=== PATIENT | female | born 1965 | race Hispanic/Latino ===

== ENCOUNTER → 2024-11-22 | Day surgery (SDC) | payer OTHER ==
[~2024-11-22] MED LIST: LIDOCAINE HCL 2% LOCAL INJ 5 ML SDV VIAL INJ ONE; MIDAZOLAM HCL 2 MG/2 ML VIAL ONE; PROPOFOL IV EMULSION 10 MG/ML 20 ML VIAL ONE
[2024-11-22] MEDS: LACTATED RINGER'S 1,000 ML ONE (09:15)
[2024-11-22 11:06] VITALS: TEMP 97.6
[2024-11-22 11:30] VITALS: BP 102/62; PULSE 65; RESP 18; O2SAT 100
== END | disposition home or self-care (01) ==
LOC: OR 08:50
PROVIDERS: ATTEND Internal Medicine Gastroenterology
DX: Z12.11 Encounter for screening for malignant neoplasm of colon (principal); K59.00 Constipation, unspecified; K62.89 Other specified diseases of anus and rectum; K57.30 Diverticulosis of large intestine without perforation or abscess without bleeding; K64.8 Other hemorrhoids; R03.0 Elevated blood-pressure reading, without diagnosis of hypertension
CPT/HCPCS: 45378; J2003; J2250; J2704; J7121